=== PATIENT | male | born 1940 | race Caucasian/White ===

== ENCOUNTER 2024-11-12 16:02 | Emergency (ER) | payer MEDICARE, MEDICAID ==
[~2024-11-12] VITALS: Ht 165.1 cm; Wt 70.0 kg
[2024-11-12 16:05] VITALS: O2SAT 98
[2024-11-12 19:05] VITALS: BP 131/77; PULSE 84; RESP 20; TEMP 36.7; O2SAT 99
== END 2024-11-12 18:42 | disposition home or self-care (01) ==
LOC: ER 16:02
DX: R09.81 Nasal congestion (principal); E11.9 Type 2 diabetes mellitus without complications; F19.90 Other psychoactive substance use, unspecified, uncomplicated; E78.00 Pure hypercholesterolemia, unspecified; I10 Essential (primary) hypertension; Z86.73 Personal history of transient ischemic attack (TIA), and cerebral infarction without residual deficits
CPT/HCPCS: 71045; 99283